=== PATIENT | female | born 1975 | race Two or more races ===

== ENCOUNTER 2016-04-18 07:57 | Emergency (ER) | payer OTHER ==
[~2016-04-18] VITALS: Ht 157.5 cm; Wt 81.6 kg
[2016-04-18 07:57] VITALS: BP 130/85
[~2016-04-18 07:57] MED LIST: NO REPORTABLE MEDS
[2016-04-18] MEDS ORDERED: IBUPROFEN 400 MG TABLET ONE (08:09)
[2016-04-18] MEDS ORDERED: IBUPROFEN 400 MG TABLET PO ONE (08:30)
== END 2016-04-18 09:44 | disposition home or self-care (01) ==
LOC: ER 07:59
DX: B34.9 Viral infection, unspecified (principal)
CPT/HCPCS: 87804 ×2; 99284; A4606; Z7610; 87400

== ENCOUNTER 2016-07-16 17:00 | Emergency (ER) | payer OTHER ==
[~2016-07-16] VITALS: Ht 157.5 cm; Wt 81.6 kg
[2016-07-16 17:31] VITALS: BP 126/91
== END 2016-07-16 20:24 | disposition home or self-care (01) ==
LOC: ER 17:01
DX: J06.9 Acute upper respiratory infection, unspecified (principal)
CPT/HCPCS: 99283; A4606; Z7610

== ENCOUNTER 2019-02-27 14:33 | Emergency (ER) | payer MEDICAID, OTHER ==
[~2019-02-27] VITALS: Ht 157.5 cm; Wt 86.2 kg
[2019-02-27 14:41] VITALS: BP 141/84
== END 2019-02-27 16:39 | disposition home or self-care (01) ==
LOC: ER 14:40
DX: H66.91 Otitis media, unspecified, right ear (principal); J06.9 Acute upper respiratory infection, unspecified; R59.0 Localized enlarged lymph nodes; Z90.89 Acquired absence of other organs; Z90.49 Acquired absence of other specified parts of digestive tract
CPT/HCPCS: 84703-TC

== ENCOUNTER 2022-01-18 15:14 | Emergency (ER) | payer BC ==
[~2022-01-18] VITALS: Ht 157.5 cm; Wt 90.7 kg
[2022-01-18 16:00] VITALS: BP 120/67
--- NOTE | 2022-01-18 16:15 | NUR ---
Ambulatory- gait even and steady
[2022-01-18] MEDS ORDERED: KETOROLAC TROMETHAMINE INJ 30 MG/ML VIAL IM ONE (16:30)
--- NOTE | 2022-01-18 16:45 | NUR ---
Medicated for pain as ordered
[2022-01-18] MEDS ORDERED: KETOROLAC TROMETHAMINE INJ 30 MG/ML VIAL ONE (16:50)
[2022-01-18] MEDS ORDERED: KETO10TA2 PO (16:54)
--- NOTE | 2022-01-18 17:02 | NUR ---
Patient discharged to home in stable condition. Written and verbal after care instructions given. Patient verbalizes understanding of instruction.
== END 2022-01-18 17:03 | disposition home or self-care (01) ==
LOC: ER 15:21
DX: M17.9 Osteoarthritis of knee, unspecified (principal); Z90.89 Acquired absence of other organs; Z90.49 Acquired absence of other specified parts of digestive tract; Z79.899 Other long term (current) drug therapy
CPT/HCPCS: 99283; 96372; 73564; J1885

== ENCOUNTER 2023-04-30 19:32 | Emergency (ER) | payer BC ==
[~2023-04-30] VITALS: Ht 157.5 cm; Wt 83.9 kg
[~2023-04-30 19:32] MED LIST changes: +KETO10TA2 PO
[2023-04-30 19:49] VITALS: BP 141/86; TEMP 98.1
[2023-04-30] MEDS ORDERED: KETOROLAC TROMETHAMINE INJ 30 MG/ML VIAL IM ONE (21:00)
[2023-04-30] MEDS ORDERED: KETOROLAC TROMETHAMINE INJ 30 MG/ML VIAL ONE (21:04)
[2023-04-30] MEDS ORDERED: KETO10TA2 PO (21:05)
[2023-04-30 21:20] VITALS: O2SAT 98
== END 2023-04-30 21:20 | disposition home or self-care (01) ==
LOC: ER 19:34
DX: M25.562 Pain in left knee (principal); Z90.89 Acquired absence of other organs; Z90.49 Acquired absence of other specified parts of digestive tract; W01.0XXA Fall on same level from slipping, tripping and stumbling without subsequent striking against object, initial encounter; Y93.89 Activity, other specified; Y92.89 Other specified places as the place of occurrence of the external cause; Y99.8 Other external cause status
CPT/HCPCS: 99283; 96372; 73564; J1885